=== PATIENT | male | born 1960 | race Caucasian/White ===

== ENCOUNTER 2024-03-28 11:18 | Emergency (ER) | payer BC ==
[2024-03-28 11:26] VITALS: RESP 18; TEMP 98.2; BMI 31.6
[2024-03-28] MEDS: SODIUM CHLORIDE 0.9% 500 ML INFUS.BAG IV ONE (11:55)
[2024-03-28 12:04] LABS: HEMATOCRIT 49.2 % (35.4-49); HEMOGLOBIN 16.7 G/dL (11.7-16.9); MCH 28.7 pg (25.7-33.7); MCHC 33.8 g/dl (32.0-35.9); MEAN CELL VOLUME 84.7 fl (80-96); MEAN PLT VOLUME 8.1 fl (7.5-11.1); PLATELET COUNT 159.5 10^3/uL (134-434); RBC 5.81 10^6/uL (4.00-5.60); RDW 14.9 % (11.9-15.9); WHITE BLOOD COUNT 6.2 10^3/uL (4.0-10.8)
[2024-03-28 12:21] LABS: ALBUMIN 4.1 g/dl (3.4-5.0); BILIRUBIN,TOTAL 0.8 mg/dl (0.2-1); CREATININE 1.3 mg/dl (0.6-1.3); POTASSIUM 3.7 mmol/L (3.5-5.1); TOT PROT 6.1 g/dl (6.4-8.2)
[2024-03-28 14:46] LABS: PLATELET ESTIMATE ADEQUATE
[2024-03-28 15:07] VITALS: BP 169/95; PULSE 87
== END 2024-03-28 17:45 | disposition home or self-care (01) ==
LOC: FER 11:18
DX: R55 Syncope and collapse (principal); R42 Dizziness and giddiness; R11.0 Nausea
CPT/HCPCS: 36415; 71045-TC-FY; 80053; 82962; 84484; 85027; 93005; 99285-25